=== PATIENT | male | born 1965 | race American Indian/Alaskan Native ===

== ENCOUNTER 2017-02-14 04:12 | Emergency (ER) | payer SELFPAY ==
[2017-02-14 04:16] VITALS: BP 144/98
[2017-02-14 05:15] LABS: Basophils % (Auto) 0.8 % (0.0-1.8); Eosinophils % (Auto) 2.2 % (0.0-4.3); Hematocrit 42.3 % (35.5-45.6); Hemoglobin 13.8 gm/dl (11.8-15.2); Mean Corpuscular HGB Conc 33 % (32-34); Mean Corpuscular Hemoglobin 28 pg (28-32); Mean Corpuscular Volume 85 fl (84-94); Platelet Count 217 K/mm3 (140-440); Red Blood Count 4.97 M/mm3 (3.65-5.03); Red Cell Distribution Width 14.8 % (13.2-15.2); White Blood Count 7.6 K/mm3 (4.5-11.0)
[2017-02-14 05:29] LABS: Anion Gap 16 mmol/L; BUN/Creatinine Ratio 21.66; Blood Urea Nitrogen 13 mg/dL (9-20); Calcium 8.6 mg/dL (8.4-10.2); Carbon Dioxide 25 mmol/L (22-30); Glucose 128 mg/dL (75-100); Potassium 3.8 mmol/L (3.6-5.0); Sodium 142 mmol/L (137-145)
--- NOTE | 2017-02-19 09:40 | ED Elopement Review ---
ED Pt Elopement review - Results review Lab results: Laboratory Tests 02/14/17 02/14/17 04:44 04:44 WBC 7.6 RBC 4.97 Hgb 13.8 Hct 42.3 MCV 85 MCH 28 MCHC 33 RDW 14.8 Plt Count 217 Lymph % (Auto) 35.6 H [place] % (Auto) 9.3 H Eos % (Auto) 2.2 Baso % (Auto) 0.8 Lymph # 2.7 [place] # 0.7 Eos # 0.2 Baso # 0.1 Seg Neutrophils % 52.1 Seg Neutrophils # 4.0 Sodium 142 Potassium 3.8 Chloride 105.0 Carbon Dioxide 25 Anion Gap 16 BUN 13 Creatinine 0.6 L Estimated GFR > 60 BUN/Creatinine Ratio 21.66 Glucose 128 H Calcium 8.6 Troponin T < 0.010 - Call Back decision Pt Call Back Decision: No action required
== END 2017-02-14 08:50 | disposition left against medical advice (07) ==
LOC: ED 04:12
DX: R07.89 Other chest pain (principal); F17.200 Nicotine dependence, unspecified, uncomplicated
CPT/HCPCS: 36415; 80048; 84484; 85025; 93005; 93010

== ENCOUNTER 2018-02-07 11:29 | Emergency (ER) | payer SELFPAY ==
[2018-02-07] MEDS ORDERED: ASPIRIN PO ONE (11:39)
[2018-02-07 12:05] LABS: Basophils # (Auto) 0.1 K/mm3 (0.0-0.1); Basophils % (Auto) 0.9 % (0.0-1.8); Eosinophils # (Auto) 0.2 K/mm3 (0.0-0.4); Eosinophils % (Auto) 3.5 % (0.0-4.3); Hematocrit 40.8 % (35.5-45.6); Hemoglobin 13.3 gm/dl (11.8-15.2); Lymphocytes # (Auto) 2.1 K/mm3 (1.2-5.4); Lymphocytes % (Auto) 34.7 % (13.4-35.0); Mean Corpuscular HGB Conc 33 % (32-34); Mean Corpuscular Hemoglobin 28 pg (28-32); Mean Corpuscular Volume 86 fl (84-94); Monocytes # (Auto) 0.5 K/mm3 (0.0-0.8); Monocytes % (Auto) 7.4 % (0.0-7.3); Platelet Count 235 K/mm3 (140-440); Red Blood Count 4.75 M/mm3 (3.65-5.03); Red Cell Distribution Width 14.3 % (13.2-15.2)
[2018-02-07 12:18] LABS: INR 0.83 (0.87-1.13)
[2018-02-07 12:19] LABS: Partial Thromboplastin Time 29.6 Sec. (24.2-36.6)
--- NOTE | 2018-02-07 12:20 | XRay Report ---
PORTABLE CHEST: Hypertension. An AP portable view of the chest demonstrates a normal cardiac contour considering the limits of this technique. The lungs are clear with no evidence of infiltrate, fluid or failure. IMPRESSION: Normal portable chest.
[2018-02-07 12:21] LABS: BUN/Creatinine Ratio 22; Blood Urea Nitrogen 13 mg/dL (9-20); Calcium 8.2 mg/dL (8.4-10.2); Hemolysis Index 4
[2018-02-07 12:24] LABS: Alanine Aminotransferase 12 units/L (7-56); Albumin 3.8 g/dL (3.9-5)
[2018-02-07 12:25] LABS: Bilirubin,Direct < 0.2 mg/dL (0-0.2)
--- NOTE | 2018-02-07 12:42 | Emergency Department Report ---
ED Chest Pain HPI - General Chief Complaint: Chest Pain Stated Complaint: CHEST PAIN Time Seen by Provider: 02/07/18 11:46 Source: patient, EMS Mode of arrival: Stretcher Limitations: No Limitations - History of Present Illness Initial Comments: This is a patient that is 53 years old with multiple risk factors for coronary artery disease as well as a positive stress thallium followed by a cardiac catheterization demonstrating multivessel disease and an RCA occlusion during his last hospitalization little more than a week ago. He tells me that bypass surgery was discussed. He states that he has appointment to see Dr. Millan the February 14. He is reported to still be smoking as of his last admission. He states he has a history of stroke that was treated at another hospital 2 years ago. He states he has had intermittent left-sided weakness since then. He states that this left-sided weakness was present again this morning albeit mild. He presents to the emergency department with 4 left-sided chest pain towards the lateral chest which she describes as intermittent and sharp. It is associated with a "fluttering". Patient did not check his pulse. He states he is breathing fine then but had some shortness of breath before he called the ambulance. He does not complain of any nausea or vomiting. He does not complain of any leg pain and/or swelling. Chest pain is largely resolved by the time of my encounter with the patient. In addition I did not find any acute or readily demonstrable left-sided weakness. MD Complaint: chest pain -: Gradual, minutes(s), hour(s) Onset: during rest Pain Location: left chest Pain Radiation: none Severity scale (0 -10): 0 Quality: sharp Consistency: intermittent Improves With: nothing Worsens With: nothing Context: other (known multivessel disease) re: dyspnea. denies: nausea, vomting, diaphoresis Other Symptoms: denies: cough, fever, syncope Treatments Prior to Arrival: none - Related Data Previous Rx's Medication Instructions Recorded Last Taken Type Famotidine [Pepcid] 20 mg PO BID #30 tablet 01/30/18 Unknown Rx Metformin HCl 500 mg PO DAILY #30 tablet 01/30/18 Unknown Rx Aspirin EC [Aspirin Enteric Coated 325 mg PO QDAY #30 tablet 01/31/18 Unknown Rx TAB] AtorvaSTATin [Lipitor] 40 mg PO QHS #30 tab 01/31/18 Unknown Rx Metoprolol [Lopressor TAB] 12.5 mg PO BID #60 tablet 01/31/18 Unknown Rx Allergies Allergy/AdvReac Type Severity Reaction Status Date / Time No Known Allergies Allergy Verified 12/04/14 11:45 Heart Score - HEART Score History: Slightly suspicious EKG: Normal (essentially normal EKG) Age: 45-65 Risk factors: > 3 risk factors or hx of atherosclerotic disease Troponin: < normal limit HEART Score: 3 - Critical Actions Critical Actions: 0-3 pts:0.9-1.7%risk of adverse cardiac event.Candidate for discharge ED Review of Systems ROS: Stated complaint: CHEST PAIN Other details as noted in HPI Constitutional: denies: chills, fever Eyes: denies: eye pain, eye discharge, vision change ENT: denies: ear pain, throat pain Respiratory: shortness of breath. denies: cough, wheezing Cardiovascular: chest pain. denies: palpitations Endocrine: no symptoms reported Gastrointestinal: denies: abdominal pain, nausea, diarrhea Genitourinary: denies: urgency, dysuria Musculoskeletal: denies: back pain, joint swelling, arthralgia Skin: denies: rash, lesions Neurological: denies: headache, weakness, paresthesias Psychiatric: denies: anxiety, depression Hematological/Lymphatic: denies: easy bleeding, easy bruising ED Past Medical Hx - Past Medical History Hx Hypertension: Yes Hx Diabetes: Yes Hx GERD: Yes - Social History Smoking Status: Current Every Day Smoker - Medications Home Medications: Home Medications Medication Instructions Recorded Confirmed Last Taken Type Famotidine [Pepcid] 20 mg PO BID #30 tablet 01/30/18 Unknown Rx Metformin HCl 500 mg PO DAILY #30 tablet 01/30/18 Unknown Rx Aspirin EC [Aspirin Enteric Coated 325 mg PO QDAY #30 tablet 01/31/18 Unknown Rx TAB] AtorvaSTATin [Lipitor] 40 mg PO QHS #30 tab 01/31/18 Unknown Rx Metoprolol [Lopressor TAB] 12.5 mg PO BID #60 tablet 01/31/18 Unknown Rx ED Physical Exam - General Limitations: No Limitations General appearance: alert, in no apparent distress - Head Head exam: Present: atraumatic, normocephalic - Eye Eye exam: Present: normal appearance. Absent: scleral icterus - ENT ENT exam: Present: mucous membranes moist - Neck Neck exam: Present: normal inspection. Absent: tenderness, meningismus - Respiratory Respiratory exam: Present: normal lung sounds bilaterally. Absent: respiratory distress - Cardiovascular Cardiovascular Exam: Present: regular rate, normal rhythm. Absent: systolic murmur, diastolic murmur, rubs, gallop - GI/Abdominal GI/Abdominal exam: Present: soft, normal bowel sounds. Absent: distended, tenderness, guarding, rebound, rigid - Rectal Rectal exam: Present: deferred - Extremities Exam Extremities exam: Present: normal inspection - Back Exam Back exam: Present: normal inspection - Neurological Exam Neurological exam: Present: alert, oriented X3, CN II-XII intact. Absent: motor sensory deficit - Psychiatric Psychiatric exam: Present: normal affect, normal mood - Skin Skin exam: Present: warm, dry, intact, normal color. Absent: rash ED Course Vital Signs 02/07/18 02/07/18 02/07/18 11:32 11:36 11:37 Temperature 97.7 F Pulse Rate 78 74 Respiratory 16 13 13 Rate Blood Pressure 132/83 Blood Pressure 124/82 [Left] O2 Sat by Pulse 100 100 100 Oximetry - Reevaluation(s) Reevaluation #1: Patient with multivessel disease and atypical history of chest pain. He also refers intermittent left-sided weakness since his stroke 2 years ago. He stated that he woke up with such weakness this morning. However his NIH stroke score is 0. This new stroke is not suspected. A CT of his head has nonetheless been ordered. Patient has been referred to Dr. Gamboa [facility] service for further care and evaluation. 02/07/18 12:42 DIOGENES score - Diogenes Score Age > 65: (0) No Aspirin use within the Past 7 Days: (0) No 3 or more CAD Risk Factors: (1) Yes 2 or more Angina events in past 24 hrs: (1) Yes Known CAD with more than 50% Stenosis: (0) No Elevated Cardiac Markers: (0) No ST Deviation Greater than 0.5mm: (0) No DIOGENES Score: 2 ED Medical Decision Making - Lab Data Result diagrams: 02/07/18 11:50 02/07/18 11:50 Laboratory Results - last 24 hr 02/07/18 02/07/18 02/07/18 11:50 11:50 11:56 WBC 6.2 RBC 4.75 Hgb 13.3 Hct 40.8 MCV 86 MCH 28 MCHC 33 RDW 14.3 Plt Count 235 Lymph % (Auto) 34.7 [place] % (Auto) 7.4 H Eos % (Auto) 3.5 Baso % (Auto) 0.9 Lymph # 2.1 [place] # 0.5 Eos # 0.2 Baso # 0.1 Seg Neutrophils % 53.5 Seg Neutrophils # 3.3 PT 11.8 L INR 0.83 L APTT 29.6 Sodium 139 Potassium 4.1 Chloride 103.8 Carbon Dioxide 27 Anion Gap 12 BUN 13 Creatinine 0.6 L Estimated GFR > 60 BUN/Creatinine Ratio 22 Glucose 207 H Calcium 8.2 L Total Bilirubin Direct Bilirubin AST ALT Alkaline Phosphatase Total Creatine Kinase CK-MB (CK-2) CK-MB (CK-2) Rel Index Troponin T < 0.010 NT-Pro-B Natriuret Pep Total Protein Albumin Albumin/Globulin Ratio 02/07/18 11:56 WBC RBC Hgb Hct MCV MCH MCHC RDW Plt Count Lymph % (Auto) [place] % (Auto) Eos % (Auto) Baso % (Auto) Lymph # [place] # Eos # Baso # Seg Neutrophils % Seg Neutrophils # PT INR APTT Sodium Potassium Chloride Carbon Dioxide Anion Gap BUN Creatinine Estimated GFR BUN/Creatinine Ratio Glucose Calcium Total Bilirubin 0.30 Direct Bilirubin < 0.2 AST 13 ALT 12 Alkaline Phosphatase 102 Total Creatine Kinase 87 CK-MB (CK-2) 2.0 CK-MB (CK-2) Rel Index 2.2 Troponin T NT-Pro-B Natriuret Pep 69.38 Total Protein 5.8 L Albumin 3.8 L Albumin/Globulin Ratio 1.9 - EKG Data -: EKG Interpreted by Nh EKG shows normal: sinus rhythm, axis, intervals, QRS complexes, ST-T waves Rate: normal - EKG Data Interpretation: normal EKG - Radiology Data Radiology results: report reviewed (normal per radiologist) Critical care attestation.: If time is entered above; I have spent that time in minutes in the direct care of this critically ill patient, excluding procedure time. ED Disposition Clinical Impression: Focal neurological signs Chest pain Qualifiers: Chest pain type: unspecified Qualified Code(s): R07.9 - Chest pain, unspecified Type 2 diabetes mellitus Qualifiers: Diabetes mellitus terminal worker insulin use: without retirement use Diabetes mellitus complication status: without complication Qualified Code(s): E11.9 - Type 2 diabetes mellitus without complications Disposition: OP ADMIT IP TO THIS HOSP Is pt being admited?: Yes Does the pt Need Aspirin: Yes Condition: Stable Instructions: Chest Pain (ED), Diabetes Mellitus Type 2 in Adults (ED) Referrals: PRIMARY CARE, [Primary Care Provider] - 3-5 Days Time of Disposition: 12:45
--- NOTE | 2018-02-07 13:27 | Cat Scan Report ---
CT head without contrast: Subjective weakness. Axial images demonstrate an unremarkable intracranial scan. No evidence of hemorrhage or mass effect. Normal ventricles. No extracerebral collection. The visualized bony structures are normal. There is mucoperiosteal thickening in the superior lateral aspect of the partially imaged left maxillary sinus. Minimal patchy changes are identified in a couple of the ethmoid sinuses bilaterally as well as in the base of the left frontal sinus. No prior exams for comparison. Impressions: 1. Normal intracranial scan. 2. Left sinusitis of indeterminate age.
[2018-02-07 13:29] LABS: Bilirubin,Urine NEG (Negative); Blood,Urine NEG (Negative); Color,Urine Yellow (Yellow); Mucus,Urine FEW /HPF; Protein,Urine <15 mg/dL mg/dL (Negative); RBC,Urine < 1.0 /HPF (0.0-6.0); WBC,Urine < 1.0 /HPF (0.0-6.0)
[2018-02-07 13:48] LABS: Amphetamine Screen,Urine PRESUMPTIVE NEGATIVE; Benzodiazepines Screen,Urine PRESUMPTIVE NEGATIVE; Cannabinoid Screen,Urine PRESUMPTIVE NEGATIVE; Methadone Screen,Urine PRESUMPTIVE NEGATIVE; Opiate Screen,Urine PRESUMPTIVE NEGATIVE
[2018-02-07 14:00] LABS: Cocaine Screen,Urine PRESUMPTIVE POSITIVE
--- NOTE | 2018-02-07 15:25 | History and Physical Report ---
History of Present Illness Chief complaint: My chest was hurting History of present illness: 53 YO Male with Medication Noncompliance, HTN, CAD, DM, Nicotine Dependence, GERD presents to ED for evaluation. Pt seen and evaluated in ED and found to have Atypical Chest Pain. Upon further interview, patient denies chest pain, and the patient states that he ran out of medication and needs refills. Pt states that he cannot afford his medication, as well as physician office visits. Pt treated with supportive care. Pt underwent serial cardiac enzymes, ekg, and telemetry monitoring which were not indicative of acute ischemia. D dimer was normal. Pt medically optimized and back to usual state of health. Pt discharged home and instructed to f/u Cardiology as instructed and to f/u pcp 1wk. Past History Past Medical History: CAD, GERD, hypertension Past Surgical History: No surgical history (reviewed) Social history: single, smoking Family history: hypertension Medications and Allergies Allergies Allergy/AdvReac Type Severity Reaction Status Date / Time No Known Allergies Allergy Verified 12/04/14 11:45 Home Medications Medication Instructions Recorded Confirmed Last Taken Type Aspirin EC [Aspirin Enteric Coated 325 mg PO QDAY #30 tablet 02/07/18 Unknown Rx TAB] AtorvaSTATin [Lipitor] 40 mg PO QHS #30 tab 02/07/18 Unknown Rx Famotidine [Pepcid] 20 mg PO BID #30 tablet 02/07/18 Unknown Rx Metformin HCl 500 mg PO DAILY #30 tablet 02/07/18 Unknown Rx Metoprolol [Lopressor TAB] 12.5 mg PO BID #60 tablet 02/07/18 Unknown Rx Review of Systems Constitutional: no weight loss, no weight gain, no fever, no chills Ears, nose, mouth and throat: no ear pain, no ear discharge, no tinnitis, no decreased hearing Cardiovascular: no chest pain, no orthopnea, no palpitations, no rapid/ irregular heart beat, no edema Respiratory: no cough, no cough with sputum, no excessive sputum, no shortness of breath Gastrointestinal: no abdominal pain, no nausea, no vomiting, no diarrhea, no constipation Genitourinary Male: no dysuria, no hematuria, no flank pain, no discharge, no urinary frequency, no urinary hesitancy, no nocturia Rectal: no pain, no incontinence, no bleeding Musculoskeletal: no neck stiffness, no neck pain, no shooting arm pain, no arm numbness/tingling, no low back pain, no shooting leg pain, no leg numbness/ tingling Integumentary: no rash, no pruritis, no redness, no sores, no wounds, no jaundice Neurological: no head injury, no transient paralysis, no paralysis, no weakness , no parathesias, no numbness Psychiatric: no anxiety, no memory loss, no change in sleep habits, no sleep disturbances, no insomnia, no hypersomnia, no change in appetite, no change in libido Endocrine: no cold intolerance, no heat intolerance, no polyphagia, no excessive thirst, no polydipsia, no polyuria, no excessive sweating Hematologic/Lymphatic: no easy bruising, no easy bleeding, no lymphadenopathy, no lymphedema Allergic/Immunologic: no urticaria, no allergic rhinitis, no wheezing, no persistent infections, no anaphylaxis, no angioedema Exam - Constitutional Vitals: Temp Pulse Resp BP Pulse Ox 97.7 F 74 13 124/82 100 02/07/18 11:36 02/07/18 11:36 02/07/18 11:37 02/07/18 11:36 02/07/18 11:37 General appearance: Present: no acute distress, well-nourished - EENT Eyes: Present: PERRL ENT: hearing intact, clear oral mucosa - Neck Neck: Present: supple, normal ROM - Respiratory Respiratory effort: normal Respiratory: bilateral: CTA - Cardiovascular Heart Sounds: Present: S1 & S2. Absent: rub, click - Extremities Extremities: pulses symmetrical, No edema Peripheral Pulses: within normal limits - Abdominal General gastrointestinal: Present: soft, non-tender, non-distended, normal bowel sounds Male genitourinary: Present: normal - Integumentary Integumentary: Present: clear, warm, dry - Musculoskeletal Musculoskeletal: gait normal, strength equal bilaterally - Psychiatric Psychiatric: appropriate mood/affect, intact judgment & insight - Neurologic Neurologic: CNII-XII intact, moves all extremities Results - Labs CBC & Chem 7: 02/07/18 11:50 02/07/18 11:50 Labs: Abnormal lab results 02/07/18 02/07/18 02/07/18 Range/Units 11:50 11:50 11:56 [place] % (Auto) 7.4 H (0.0-7.3) % PT 11.8 L (12.2-14.9) Sec. INR 0.83 L (0.87-1.13) Creatinine 0.6 L (0.8-1.5) mg/dL Glucose 207 H (75-100) mg/dL Calcium 8.2 L (8.4-10.2) mg/dL Total Protein (6.3-8.2) g/dL Albumin (3.9-5) g/dL 02/07/18 Range/Units 11:56 [place] % (Auto) (0.0-7.3) % PT (12.2-14.9) Sec. INR (0.87-1.13) Creatinine (0.8-1.5) mg/dL Glucose (75-100) mg/dL Calcium (8.4-10.2) mg/dL Total Protein 5.8 L (6.3-8.2) g/dL Albumin 3.8 L (3.9-5) g/dL Assessment and Plan - Patient Problems (1) Atypical chest pain Current Visit: Yes Status: Acute Plan to address problem: Serial cardiac enzymes, ekg, telemetry normal. D dimer normal. Pt denies chest pain at time of exam. Pt presents to ED for medication refill. (2) Nicotine dependence Current Visit: Yes Status: Acute Qualifiers: Nicotine product type: cigarettes Plan to address problem: Pt counseled regarding cessation, Pt declined to pick quit date (3) Noncompliance Current Visit: No Status: Acute Plan to address problem: Pt counseled,
[2018-02-07] MEDS ORDERED: NACL 0.9% 1000 ML 0 ML ONE (15:43)
[2018-02-07] MEDS ORDERED: ASPIRIN ONE (18:12)
[2018-02-07 18:29] VITALS: BP 133/76
== END 2018-02-07 21:32 | disposition admitted as inpatient to this hospital (09) ==
LOC: ED 11:29
DX: R07.9 Chest pain, unspecified (principal); R29.818 Other symptoms and signs involving the nervous system; E11.9 Type 2 diabetes mellitus without complications; I10 Essential (primary) hypertension; K21.9 Gastro-esophageal reflux disease without esophagitis; F17.200 Nicotine dependence, unspecified, uncomplicated; Z79.84 Long term (current) use of oral hypoglycemic drugs; Z79.899 Other long term (current) drug therapy
CPT/HCPCS: 36415; 70450; 71045; 80048; 80074; 80307; 81001; 82550; 82553; 83880; 84484; 85025; 85379; 85610; 85730; 93005; 93010; J7030

== ENCOUNTER 2018-02-07 22:02 | Emergency (ER) | payer SELFPAY ==
[2018-02-07 22:30] LABS: Basophils % (Auto) 0.6 % (0.0-1.8); Eosinophils # (Auto) 0.3 K/mm3 (0.0-0.4); Eosinophils % (Auto) 3.6 % (0.0-4.3); Hematocrit 41.3 % (35.5-45.6); Hemoglobin 13.5 gm/dl (11.8-15.2); Lymphocytes # (Auto) 3.5 K/mm3 (1.2-5.4); Lymphocytes % (Auto) 47.2 % (13.4-35.0); Mean Corpuscular HGB Conc 33 % (32-34); Mean Corpuscular Hemoglobin 28 pg (28-32); Mean Corpuscular Volume 86 fl (84-94); Monocytes # (Auto) 0.8 K/mm3 (0.0-0.8); Monocytes % (Auto) 10.8 % (0.0-7.3); Platelet Count 236 K/mm3 (140-440); Red Blood Count 4.83 M/mm3 (3.65-5.03); Red Cell Distribution Width 14.4 % (13.2-15.2)
[2018-02-07 22:44] LABS: BUN/Creatinine Ratio 20; Blood Urea Nitrogen 12 mg/dL (9-20); Calcium 8.4 mg/dL (8.4-10.2); Hemolysis Index 9
--- NOTE | 2018-02-08 02:52 | Emergency Department Report ---
ED General Adult HPI - General Chief complaint: Dyspnea/Respdistress Stated complaint: VINCENT Time Seen by Provider: 02/08/18 02:12 Source: patient, family Mode of arrival: Stretcher Limitations: No Limitations - History of Present Illness Initial comments: Mr. Villegas is a 53-year-old male who presents after fall in the ED. He was evaluated by hospitalist colleague Dr. Gamboa for possible admission. He has had extensive evaluation for coronary disease last week. Therefore he was discharged after hospitalist consultation. I reviewed the medical record. Upon discharge from the ED, he fell to the floor. He did not have any associated chest pain or syncope. He did state that he has had 2 weeks of left arm and leg numbness weakness. He has a history of previous CVA with left hip area since. Significant other is at the bedside. She is concerned for recurrent syncope. - Related Data Previous Rx's Medication Instructions Recorded Last Taken Type Aspirin EC [Aspirin Enteric Coated 325 mg PO QDAY #30 tablet 02/07/18 Unknown Rx TAB] AtorvaSTATin [Lipitor] 40 mg PO QHS #30 tab 02/07/18 Unknown Rx Famotidine [Pepcid] 20 mg PO BID #30 tablet 02/07/18 Unknown Rx Metformin HCl 500 mg PO DAILY #30 tablet 02/07/18 Unknown Rx Metoprolol [Lopressor TAB] 12.5 mg PO BID #60 tablet 02/07/18 Unknown Rx Allergies Allergy/AdvReac Type Severity Reaction Status Date / Time No Known Allergies Allergy Verified 12/04/14 11:45 ED Review of Systems ROS: Stated complaint: VINCENT Other details as noted in HPI Comment: All other systems reviewed and negative Constitutional: denies: fever, malaise Respiratory: denies: cough Cardiovascular: denies: chest pain ED Past Medical Hx - Past Medical History Previous Medical History?: Yes Hx Hypertension: Yes Hx Diabetes: Yes Hx GERD: Yes - Surgical History Past Surgical History?: Yes - Social History Smoking Status: Unknown if ever smoked Substance Use Type: None - Medications Home Medications: Home Medications Medication Instructions Recorded Confirmed Last Taken Type Aspirin EC [Aspirin Enteric Coated 325 mg PO QDAY #30 tablet 02/07/18 02/07/18 Unknown Rx TAB] AtorvaSTATin [Lipitor] 40 mg PO QHS #30 tab 02/07/18 02/07/18 Unknown Rx Famotidine [Pepcid] 20 mg PO BID #30 tablet 02/07/18 02/07/18 Unknown Rx Metformin HCl 500 mg PO DAILY #30 tablet 02/07/18 02/07/18 Unknown Rx Metoprolol [Lopressor TAB] 12.5 mg PO BID #60 tablet 02/07/18 02/07/18 Unknown Rx ED Physical Exam - General Limitations: No Limitations General appearance: alert, in no apparent distress - Head Head exam: Present: atraumatic, normocephalic - Eye Eye exam: Present: normal appearance - ENT ENT exam: Present: mucous membranes moist - Neck Neck exam: Present: normal inspection - Respiratory Respiratory exam: Present: normal lung sounds bilaterally. Absent: respiratory distress, wheezes, rales, rhonchi - Cardiovascular Cardiovascular Exam: Present: regular rate, normal rhythm. Absent: systolic murmur, diastolic murmur, rubs, gallop - GI/Abdominal GI/Abdominal exam: Present: soft, normal bowel sounds. Absent: distended, tenderness, guarding, rebound - Rectal Rectal exam: Present: deferred - Extremities Exam Extremities exam: Present: normal inspection - Back Exam Back exam: Present: normal inspection - Neurological Exam Neurological exam: Present: alert, oriented X3, CN II-XII intact, normal gait. Absent: motor sensory deficit - Psychiatric Psychiatric exam: Present: normal affect, normal mood - Skin Skin exam: Present: warm, dry, intact, normal color. Absent: rash ED Course Vital Signs 02/07/18 02/07/18 02/07/18 22:00 22:15 22:30 Pulse Rate 74 81 72 Respiratory 15 14 14 Rate Blood Pressure 144/82 143/74 O2 Sat by Pulse 99 98 94 Oximetry 02/07/18 02/07/18 02/07/18 22:45 22:49 23:00 Pulse Rate 72 72 70 Respiratory 13 22 25 H Rate Blood Pressure 138/76 138/76 136/80 O2 Sat by Pulse 95 99 96 Oximetry 02/07/18 02/07/18 02/07/18 23:15 23:31 23:45 Pulse Rate 71 72 72 Respiratory 16 17 15 Rate Blood Pressure 150/72 128/64 128/73 O2 Sat by Pulse 96 95 96 Oximetry 02/08/18 02/08/18 02/08/18 00:00 00:15 00:30 Pulse Rate 68 65 67 Respiratory 15 12 8 L Rate Blood Pressure 132/74 140/80 133/84 O2 Sat by Pulse 95 94 95 Oximetry 02/08/18 02/08/18 02/08/18 00:45 01:00 01:15 Pulse Rate 74 62 65 Respiratory 21 19 19 Rate Blood Pressure 123/87 121/71 115/77 O2 Sat by Pulse 96 97 96 Oximetry 02/08/18 02/08/18 01:30 01:45 Pulse Rate 66 63 Respiratory 20 19 Rate Blood Pressure 119/74 134/73 O2 Sat by Pulse 96 99 Oximetry ED Medical Decision Making - Lab Data Result diagrams: 02/07/18 22:14 02/07/18 22:14 Laboratory Results - last 24 hr 02/07/18 02/07/18 22:14 22:14 WBC 7.3 RBC 4.83 Hgb 13.5 Hct 41.3 MCV 86 MCH 28 MCHC 33 RDW 14.4 Plt Count 236 Lymph % (Auto) 47.2 H [place] % (Auto) 10.8 H Eos % (Auto) 3.6 Baso % (Auto) 0.6 Lymph # 3.5 [place] # 0.8 Eos # 0.3 Baso # 0.0 Seg Neutrophils % 37.8 L Seg Neutrophils # 2.8 Sodium 140 Potassium 3.9 Chloride 103.9 Carbon Dioxide 26 Anion Gap 14 BUN 12 Creatinine 0.6 L Estimated GFR > 60 BUN/Creatinine Ratio 20 Glucose 199 H Calcium 8.4 - EKG Data 02/08/18 02:53 NSR nl rate nl axis nl intervals no ST-T signs of ischemia no ST elevation rate 75 bpm - Medical Decision Making Mr. Villegas presents with left sided numbness and weakness for 2 weeks. He is not currently concerned for chest pain. I feel his current numbness and weakness is residual weakness from previous CVA. He is stable for home. He has normal EKG presently. Significant other will arrange f/u at [facility]. Critical care attestation.: If time is entered above; I have spent that time in minutes in the direct care of this critically ill patient, excluding procedure time. ED Disposition Clinical Impression: Fall, History of CVA (cerebrovascular accident) Disposition: DC-01 TO HOME OR SELFCARE Is pt being admited?: No Does the pt Need Aspirin: No Condition: Stable Instructions: Weakness (ED), Syncope (ED) Referrals: [facility] [Outside] - 3-5 Days Time of Disposition: 02:56
[2018-02-08 03:02] VITALS: BP 126/78
== END 2018-02-08 03:08 | disposition home or self-care (01) ==
LOC: ED 22:02
DX: R06.00 Dyspnea, unspecified (principal); I10 Essential (primary) hypertension; E11.9 Type 2 diabetes mellitus without complications; K21.9 Gastro-esophageal reflux disease without esophagitis; Z86.73 Personal history of transient ischemic attack (TIA), and cerebral infarction without residual deficits
CPT/HCPCS: 36415; 80048; 85025; 93005; 93010; 99283

== ENCOUNTER 2018-02-22 00:13 | Emergency (ER) | payer OTHER ==
[2018-02-22 01:11] LABS: Basophils # (Auto) 0.1 K/mm3 (0.0-0.1); Basophils % (Auto) 0.8 % (0.0-1.8); Eosinophils # (Auto) 0.2 K/mm3 (0.0-0.4); Eosinophils % (Auto) 2.9 % (0.0-4.3); Hematocrit 43.8 % (35.5-45.6); Hemoglobin 14.4 gm/dl (11.8-15.2); Lymphocytes # (Auto) 3.7 K/mm3 (1.2-5.4); Lymphocytes % (Auto) 44.6 % (13.4-35.0); Mean Corpuscular HGB Conc 33 % (32-34); Mean Corpuscular Hemoglobin 28 pg (28-32); Mean Corpuscular Volume 87 fl (84-94); Monocytes # (Auto) 0.7 K/mm3 (0.0-0.8); Monocytes % (Auto) 8.5 % (0.0-7.3); Platelet Count 225 K/mm3 (140-440); Red Blood Count 5.06 M/mm3 (3.65-5.03); Red Cell Distribution Width 14.4 % (13.2-15.2)
[2018-02-22 01:30] LABS: Alanine Aminotransferase 11 units/L (7-56); Albumin 3.9 g/dL (3.9-5); BUN/Creatinine Ratio 17; Blood Urea Nitrogen 12 mg/dL (9-20); Hemolysis Index 8
--- NOTE | 2018-02-22 06:46 | Emergency Department Report ---
HPI - General Chief Complaint: Extremity Problem,Nontraumatic Time Seen by Provider: 02/22/18 06:14 - HPI HPI: 53-year-old Afro-Syrian male presents to the emergency department by EMS from home with complaint of bilateral leg pain, 8 out of 10 in intensity, but has been going on for about 24 hours. The patient reiterates that he feels like " my veins are popping out of my legs." He has a past medical history of diabetes , GERD, hypertension. He denies any recent travel, prolonged immobility, or any sick contacts at home. He has not taken anything for her symptoms prior to presentation. He denies having a primary care physician. ED Past Medical Hx - Past Medical History Hx Hypertension: Yes Hx Diabetes: Yes Hx GERD: Yes - Social History Smoking Status: Current Every Day Smoker Substance Use Type: None - Medications Home Medications: Home Medications Medication Instructions Recorded Confirmed Last Taken Type Aspirin EC [Aspirin Enteric Coated 325 mg PO QDAY #30 tablet 02/07/18 02/07/18 Unknown Rx TAB] AtorvaSTATin [Lipitor] 40 mg PO QHS #30 tab 02/07/18 02/07/18 Unknown Rx Famotidine [Pepcid] 20 mg PO BID #30 tablet 02/07/18 02/07/18 Unknown Rx Metformin HCl 500 mg PO DAILY #30 tablet 02/07/18 02/07/18 Unknown Rx Metoprolol [Lopressor TAB] 12.5 mg PO BID #60 tablet 02/07/18 02/07/18 Unknown Rx ED Review of Systems ROS: Stated complaint: LEG PAIN Other details as noted in HPI Comment: All other systems reviewed and negative Constitutional: denies: chills, fever Eyes: denies: eye pain, eye discharge, vision change ENT: denies: ear pain, throat pain Respiratory: denies: cough, shortness of breath, wheezing Cardiovascular: denies: chest pain, palpitations Gastrointestinal: denies: abdominal pain, nausea, diarrhea Genitourinary: denies: urgency, dysuria Musculoskeletal: myalgia. denies: back pain Skin: denies: rash, lesions Neurological: denies: headache, weakness, paresthesias Physical Exam - Physical Exam Vital Signs: Vital Signs 02/22/18 00:16 Temperature 98.3 F Pulse Rate 96 H Respiratory 16 Rate Blood Pressure 137/86 O2 Sat by Pulse 98 Oximetry ED Course Vital Signs 02/22/18 00:16 Temperature 98.3 F Pulse Rate 96 H Respiratory 16 Rate Blood Pressure 137/86 O2 Sat by Pulse 98 Oximetry ED Medical Decision Making - Lab Data Result diagrams: 02/22/18 00:48 02/22/18 00:47 Critical care attestation.: If time is entered above; I have spent that time in minutes in the direct care of this critically ill patient, excluding procedure time. ED Disposition Clinical Impression: Bilateral leg pain Disposition: - TO HOME OR SELFCARE Is pt being admited?: No Condition: Stable Instructions: Arthralgia (ED) Additional Instructions: Please follow up with a primary care physician in the next few days. Return to the emergency Department with any worsening of your symptoms or any acute distress. Referrals: JEREMIAH FISHER MD [Staff Physician] - 2-3 Days [facility] [Outside] - 2-3 Days Time of Disposition: 10:32
[2018-02-22 12:03] VITALS: BP 114/67
== END 2018-02-22 12:05 | disposition home or self-care (01) ==
LOC: ED 00:13
DX: M79.605 Pain in left leg (principal); M79.604 Pain in right leg; I10 Essential (primary) hypertension; E11.9 Type 2 diabetes mellitus without complications; K21.9 Gastro-esophageal reflux disease without esophagitis; F17.200 Nicotine dependence, unspecified, uncomplicated
CPT/HCPCS: 36415; 80053; 82550; 85025; 93970; 99283

== ENCOUNTER 2018-02-22 12:31 | Emergency (ER) | payer SELFPAY ==
[2018-02-22 12:59] VITALS: BP 127/87
--- NOTE | 2018-02-22 14:34 | Emergency Department Report ---
Chief Complaint: Extremity Problem,Nontraumatic Stated Complaint: LEG NUMBNESS Time Seen by Provider: 02/22/18 14:05 - HPI History of Present Illness: Patient is a 53-year-old -Welsh male who was just discharged from the emergency department several hours ago was checked back in stating that he wants something for pain. Patient is complaining of intermittent left lower extremity numbness and pain. Patient states his veins look too prominent on the side. Patient also has intermittent discomfort in his left upper shoulder areas well. There is been no redness swelling of these extremities. Patient again was seen in the emergency department had a negative CK negative Doppler negative d-dimer and was discharged with outpatient follow-up. - ROS Review of Systems: All other systems are negative and have been reviewed - Exam Vital Signs: Vital Signs 02/22/18 12:56 Temperature 98.4 F Pulse Rate 75 Respiratory 16 Rate Blood Pressure 127/87 O2 Sat by Pulse 97 Oximetry Physical Exam: Brief physical exam the patient's extremities show no acute swelling edema redness induration or fluctuance in any areas. Heart exam shows normal heart tones lungs are clear to auscultations abdomen is soft nontender. MSE screening note: Focused history and physical exam performed. Due to findings the following was ordered: ED Medical Decision Making - Medical Decision Making Patient advised to use [id number] pain meds such as Motrin or Aleve patient be discharged home with follow-up. ED Disposition for MSE Clinical Impression: Radiculopathy Disposition: Z-07 MED SCREENING EXAM-LEFT Is pt being admited?: No Does the pt Need Aspirin: No Condition: Stable Referrals: [facility] [Outside] - 3-5 Days
== END 2018-02-22 14:47 | disposition left against medical advice (07) ==
LOC: ED 12:31
DX: M54.10 Radiculopathy, site unspecified (principal)
CPT/HCPCS: 99282

== ENCOUNTER 2018-02-24 11:32 | Emergency (ER) | payer SELFPAY ==
[2018-02-24] MEDS ORDERED: ASPIRIN PO ONE (11:46)
--- NOTE | 2018-02-24 12:43 | XRay Report ---
Chest 2 views: History: Shortness of breath. Chest pain. Smoker. Findings: Normal cardiomediastinal silhouette. Trachea is midline. No consolidation, pneumothorax or pleural effusion. Impression: No acute cardiopulmonary findings.
[2018-02-24 12:59] LABS: Basophils # (Auto) 0.1 K/mm3 (0.0-0.1); Basophils % (Auto) 0.8 % (0.0-1.8); Eosinophils # (Auto) 0.2 K/mm3 (0.0-0.4); Hematocrit 44.5 % (35.5-45.6); Hemoglobin 14.7 gm/dl (11.8-15.2); Lymphocytes % (Auto) 33.7 % (13.4-35.0); Mean Corpuscular HGB Conc 33 % (32-34); Mean Corpuscular Hemoglobin 28 pg (28-32); Mean Corpuscular Volume 86 fl (84-94); Monocytes # (Auto) 0.5 K/mm3 (0.0-0.8); Monocytes % (Auto) 5.9 % (0.0-7.3); Platelet Count 233 K/mm3 (140-440); Red Cell Distribution Width 14.5 % (13.2-15.2)
[2018-02-24 13:10] LABS: BUN/Creatinine Ratio 16; Blood Urea Nitrogen 11 mg/dL (9-20); Hemolysis Index 11
[2018-02-24] MEDS ORDERED: NITROSTAT SL PRN (15:36)
--- NOTE | 2018-02-24 16:46 | Emergency Department Report ---
ED Chest Pain HPI - General Chief Complaint: Chest Pain Stated Complaint: CHEST PAINS Time Seen by Provider: 02/24/18 15:35 Source: patient Mode of arrival: Ambulatory Limitations: No Limitations - History of Present Illness Initial Comments: 1 day of left sided CP that is intermittent, radiating to his left arm, pleuritic, exertional. His chest feels a lot of pressure. Similar to the pain that he had 2 weeks ago. Smokes 1 PPD. No fam hx of ACS. - Related Data Previous Rx's Medication Instructions Recorded Last Taken Type Aspirin EC [Aspirin Enteric Coated 325 mg PO QDAY #30 tablet 02/24/18 Unknown Rx TAB] AtorvaSTATin [Lipitor] 40 mg PO QHS #30 tab 02/24/18 Unknown Rx Famotidine [Pepcid] 20 mg PO BID #30 tablet 02/24/18 Unknown Rx Metformin HCl 500 mg PO DAILY #30 tablet 02/24/18 Unknown Rx Metoprolol [Lopressor TAB] 12.5 mg PO BID #60 tablet 02/24/18 Unknown Rx Allergies Allergy/AdvReac Type Severity Reaction Status Date / Time No Known Allergies Allergy Verified 02/22/18 00:16 Heart Score - HEART Score History: Moderately suspicious EKG: Normal Age: 45-65 Risk factors: > 3 risk factors or hx of atherosclerotic disease Troponin: < normal limit HEART Score: 4 ED Review of Systems ROS: Stated complaint: CHEST PAINS Other details as noted in HPI Comment: All other systems reviewed and negative Respiratory: shortness of breath Cardiovascular: chest pain ED Past Medical Hx - Past Medical History Hx Hypertension: Yes Hx Diabetes: Yes Hx GERD: Yes - Surgical History Past Surgical History?: No - Social History Smoking Status: Current Every Day Smoker Substance Use Type: None - Medications Home Medications: Home Medications Medication Instructions Recorded Confirmed Last Taken Type Aspirin EC [Aspirin Enteric Coated 325 mg PO QDAY #30 tablet 02/24/18 Unknown Rx TAB] AtorvaSTATin [Lipitor] 40 mg PO QHS #30 tab 02/24/18 Unknown Rx Famotidine [Pepcid] 20 mg PO BID #30 tablet 02/24/18 Unknown Rx Metformin HCl 500 mg PO DAILY #30 tablet 02/24/18 Unknown Rx Metoprolol [Lopressor TAB] 12.5 mg PO BID #60 tablet 02/24/18 Unknown Rx ED Physical Exam - General Limitations: No Limitations General appearance: alert, in no apparent distress - Head Head exam: Present: atraumatic, normocephalic - Eye Eye exam: Present: normal appearance - ENT ENT exam: Present: mucous membranes moist - Neck Neck exam: Present: normal inspection - Respiratory Respiratory exam: Present: normal lung sounds bilaterally. Absent: respiratory distress - Cardiovascular Cardiovascular Exam: Present: regular rate, normal rhythm. Absent: systolic murmur, diastolic murmur, rubs, gallop - GI/Abdominal GI/Abdominal exam: Present: soft, normal bowel sounds. Absent: tenderness - Rectal Rectal exam: Present: deferred - Extremities Exam Extremities exam: Present: normal inspection - Back Exam Back exam: Present: normal inspection - Neurological Exam Neurological exam: Present: alert, oriented X3 - Psychiatric Psychiatric exam: Present: normal affect, normal mood - Skin Skin exam: Present: warm, dry, intact, normal color. Absent: rash ED Course Vital Signs 02/24/18 02/24/18 11:40 15:44 Temperature 98.6 F 98.6 F Pulse Rate 87 69 Respiratory 18 16 Rate Blood Pressure 140/84 Blood Pressure 120/77 [Left] O2 Sat by Pulse 99 100 Oximetry DIOGENES score - Diogenes Score Age > 65: (0) No Aspirin use within the Past 7 Days: (0) No 3 or more CAD Risk Factors: (1) Yes 2 or more Angina events in past 24 hrs: (1) Yes Known CAD with more than 50% Stenosis: (0) No Elevated Cardiac Markers: (0) No ST Deviation Greater than 0.5mm: (0) No DIOGENES Score: 2 ED Medical Decision Making - Lab Data Result diagrams: 02/24/18 12:38 02/24/18 12:38 - EKG Data -: EKG Interpreted by Ri EKG shows normal: sinus rhythm, axis, intervals, QRS complexes, ST-T waves Rate: normal - EKG Data When compared to previous EKG there are: no significant change - Radiology Data Radiology results: report reviewed, image reviewed - Medical Decision Making 53 yo male with pmhx CAD, HTN, HLD that presents to the ER with CP. VSS. PT well appearing. CXR shows no acute process. Heart score 4. LHC in 01/2018 showed 100% RCA occlusion with moderate CAD. trop neg x2. Pt still having CP. Given asa. Pt will be admitted for further ACS work up. EKG is nonischemic. low suspicion for PE. - Differential Diagnosis ACS, ptx, pna, dissection, esophageal rupture, gerd Critical care attestation.: If time is entered above; I have spent that time in minutes in the direct care of this critically ill patient, excluding procedure time. ED Disposition Clinical Impression: Chest pain Disposition: OP ADMIT IP TO THIS HOSP Is pt being admited?: Yes Does the pt Need Aspirin: No Condition: Stable Instructions: Chest Pain (ED) Prescriptions: AtorvaSTATin [Lipitor] 40 mg PO QHS #30 tab Aspirin EC [Aspirin Enteric Coated TAB] 325 mg PO QDAY #30 tablet Famotidine [Pepcid] 20 mg PO BID #30 tablet Metformin HCl 500 mg PO DAILY #30 tablet Metoprolol [Lopressor TAB] 12.5 mg PO BID #60 tablet Referrals: PRIMARY CARE, [Primary Care Provider] - 3-5 Days
--- NOTE | 2018-02-24 17:08 | History and Physical Report ---
History of Present Illness Chief complaint: My chest hurts History of present illness: 53 YO Male with HTN, DM, Nicotine Dependence, GERD, CAD presents to ED for evaluation for Atypical Chest Pain. Pt seen and evaluated and treated with Chest Pain protocol. Serial cardiac enzymes, ekg, and telemetry were unremarkable for evidence of ischemia. Pt medically optimized and back to usual state of health. Pt discharged home and instructed to f/u pcp 1wk, and cardiology 3-5 days. Pt counseled regarding risk factor reduction. Pt acknowledges understanding instructions. Past History Past Medical History: CAD, diabetes, GERD, hypertension Past Surgical History: No surgical history, Other (reviewed) Social history: Family history: diabetes, hypertension Medications and Allergies Allergies Allergy/AdvReac Type Severity Reaction Status Date / Time No Known Allergies Allergy Verified 02/22/18 00:16 Home Medications Medication Instructions Recorded Confirmed Last Taken Type Aspirin EC [Aspirin Enteric Coated 325 mg PO QDAY #30 tablet 02/24/18 Unknown Rx TAB] AtorvaSTATin [Lipitor] 40 mg PO QHS #30 tab 02/24/18 Unknown Rx Famotidine [Pepcid] 20 mg PO BID #30 tablet 02/24/18 Unknown Rx Metformin HCl 500 mg PO DAILY #30 tablet 02/24/18 Unknown Rx Metoprolol [Lopressor TAB] 12.5 mg PO BID #60 tablet 02/24/18 Unknown Rx Active Meds: Active Medications Nitroglycerin (Nitrostat) 0.4 mg SL .Q5MIN PRN PRN Reason: Chest Pain Review of Systems Constitutional: no weight loss, no weight gain, no fever, no chills Ears, nose, mouth and throat: no ear pain, no ear discharge, no tinnitis, no decreased hearing, no nose pain, no nasal congestion, no nasal discharge Cardiovascular: chest pain, no orthopnea, no palpitations, no rapid/irregular heart beat Respiratory: no cough, no cough with sputum, no excessive sputum, no hemoptysis , no shortness of breath Gastrointestinal: no abdominal pain, no nausea, no vomiting, no diarrhea, no constipation Genitourinary Male: no hematuria, no flank pain, no discharge, no urinary frequency, no urinary hesitancy Rectal: no pain, no incontinence, no bleeding Musculoskeletal: no neck stiffness, no neck pain, no shooting arm pain, no arm numbness/tingling, no low back pain, no shooting leg pain Integumentary: no rash, no pruritis, no redness, no sores, no wounds Neurological: no transient paralysis, no paralysis, no weakness, no parathesias , no numbness, no tingling, no seizures Psychiatric: no anxiety, no memory loss, no change in sleep habits, no sleep disturbances, no insomnia, no hypersomnia, no change in appetite, no change in libido Endocrine: no cold intolerance, no heat intolerance, no polyphagia, no excessive thirst, no polydipsia, no polyuria, no nocturia, no excessive sweating Hematologic/Lymphatic: no easy bruising, no easy bleeding, no lymphadenopathy, no lymphedema Allergic/Immunologic: no urticaria, no allergic rhinitis, no wheezing, no persistent infections, no anaphylaxis Exam - Constitutional Vitals: Temp Pulse Resp BP Pulse Ox 98.6 F 69 16 120/77 100 02/24/18 15:44 02/24/18 15:44 02/24/18 15:44 02/24/18 15:44 02/24/18 15:44 General appearance: Present: no acute distress, well-nourished - EENT Eyes: Present: PERRL ENT: hearing intact, clear oral mucosa - Neck Neck: Present: supple, normal ROM - Respiratory Respiratory effort: normal Respiratory: bilateral: CTA - Cardiovascular Heart Sounds: Present: S1 & S2. Absent: rub, click - Extremities Extremities: pulses symmetrical, No edema Peripheral Pulses: within normal limits - Abdominal General gastrointestinal: Present: soft, non-tender, non-distended, normal bowel sounds Male genitourinary: Present: normal - Integumentary Integumentary: Present: clear, warm, dry - Musculoskeletal Musculoskeletal: gait normal, strength equal bilaterally - Psychiatric Psychiatric: appropriate mood/affect, intact judgment & insight - Neurologic Neurologic: CNII-XII intact, moves all extremities Results - Labs CBC & Chem 7: 02/24/18 12:38 02/24/18 12:38 Labs: Abnormal lab results 02/24/18 02/24/18 Range/Units 12:38 12:38 RBC 5.20 H (3.65-5.03) M/mm3 Creatinine 0.7 L (0.8-1.5) mg/dL Glucose 161 H (75-100) mg/dL Assessment and Plan - Patient Problems (1) Atypical chest pain Current Visit: No Status: Acute Plan to address problem: Serial cardiac enzymes, ekg, telemetry. Pt discharged home and instructed to f/ u pcp as well as cardiology as instructed. (2) GERD (gastroesophageal reflux disease) Current Visit: Yes Status: Acute Qualifiers: Esophagitis presence: without esophagitis Qualified Code(s): K21.9 - Gastro -esophageal reflux disease without esophagitis Plan to address problem: PPI therapy (3) Nicotine dependence Current Visit: No Status: Acute Qualifiers: Nicotine product type: cigarettes Plan to address problem: Smoking cessation couseling.
[2018-02-24 20:06] VITALS: BP 120/78
== END 2018-02-24 20:06 | disposition home or self-care (01) ==
LOC: ED 11:32
DX: R07.89 Other chest pain (principal); I10 Essential (primary) hypertension; E11.9 Type 2 diabetes mellitus without complications; K21.9 Gastro-esophageal reflux disease without esophagitis; F17.200 Nicotine dependence, unspecified, uncomplicated
CPT/HCPCS: 36415; 71046; 80048; 84484; 85025; 85379; 93005; 93010

== ENCOUNTER 2018-02-25 08:10 | Emergency (ER) | payer SELFPAY ==
[2018-02-25] MEDS ORDERED: NACL 0.9% 1000 ML 1,000 ML IV ONE (08:19)
[2018-02-25 08:55] LABS: Basophils # (Auto) 0.1 K/mm3 (0.0-0.1); Basophils % (Auto) 0.7 % (0.0-1.8); Eosinophils # (Auto) 0.2 K/mm3 (0.0-0.4); Eosinophils % (Auto) 2.2 % (0.0-4.3); Hematocrit 44.7 % (35.5-45.6); Hemoglobin 14.7 gm/dl (11.8-15.2); Lymphocytes # (Auto) 2.4 K/mm3 (1.2-5.4); Lymphocytes % (Auto) 29.5 % (13.4-35.0); Mean Corpuscular HGB Conc 33 % (32-34); Mean Corpuscular Hemoglobin 28 pg (28-32); Mean Corpuscular Volume 86 fl (84-94); Monocytes # (Auto) 0.7 K/mm3 (0.0-0.8); Monocytes % (Auto) 8.4 % (0.0-7.3); Platelet Count 226 K/mm3 (140-440); Red Blood Count 5.18 M/mm3 (3.65-5.03); Red Cell Distribution Width 14.5 % (13.2-15.2)
[2018-02-25 09:14] LABS: Alanine Aminotransferase 13 units/L (7-56); Albumin 3.9 g/dL (3.9-5); BUN/Creatinine Ratio 17; Blood Urea Nitrogen 10 mg/dL (9-20); Calcium 9.3 mg/dL (8.4-10.2); Hemolysis Index 11
--- NOTE | 2018-02-25 16:26 | Emergency Department Report ---
HPI - General Chief Complaint: Abdominal Pain Time Seen by Provider: 02/25/18 15:56 - HPI HPI: 53-year-old male presents to the emergency department with complaint of lower abdominal cramping pains along with nausea and vomiting 2 with green emesis has been going on since this morning. He denies any fever, diarrhea, current chest pain, shortness of breath. Patient has a past medical history of diabetes, GERD, hypertension. Patient has been to the emergency Department here multiple times in the past few days for previous complaints of leg pain and chest discomfort. He does not appear to have a primary care physician. No recent travel or sick contacts at home. He did not take anything for his symptoms prior to presentation. ED Past Medical Hx - Past Medical History Hx Hypertension: Yes Hx Diabetes: Yes Hx GERD: Yes - Surgical History Past Surgical History?: No - Social History Smoking Status: Current Every Day Smoker Substance Use Type: None - Medications Home Medications: Home Medications Medication Instructions Recorded Confirmed Last Taken Type Aspirin EC [Aspirin Enteric Coated 325 mg PO QDAY #30 tablet 02/24/18 02/25/18 Unknown Rx TAB] AtorvaSTATin [Lipitor] 40 mg PO QHS #30 tab 02/24/18 02/25/18 Unknown Rx Famotidine [Pepcid] 20 mg PO BID #30 tablet 02/24/18 02/25/18 Unknown Rx Metformin HCl 500 mg PO DAILY #30 tablet 02/24/18 02/25/18 Unknown Rx Metoprolol [Lopressor TAB] 12.5 mg PO BID #60 tablet 02/24/18 02/25/18 Unknown Rx Ondansetron [Zofran Odt] 4 mg PO Q8H PRN #10 tab.rapdis 02/25/18 Unknown Rx ED Review of Systems ROS: Stated complaint: ABD PAIN Other details as noted in HPI Comment: All other systems reviewed and negative Constitutional: denies: chills, fever Eyes: denies: eye pain, eye discharge, vision change ENT: denies: ear pain, throat pain Respiratory: denies: cough, shortness of breath, wheezing Cardiovascular: denies: chest pain, palpitations Gastrointestinal: abdominal pain, nausea, vomiting Genitourinary: denies: urgency, dysuria Musculoskeletal: denies: back pain, joint swelling, arthralgia Skin: denies: rash, lesions Neurological: denies: headache, weakness, paresthesias Physical Exam - Physical Exam Vital Signs: Vital Signs 02/25/18 02/25/18 08:17 15:50 Temperature 97.5 F L 98.2 F Pulse Rate 87 78 Respiratory 16 18 Rate Blood Pressure 124/77 Blood Pressure 114/72 [Left] O2 Sat by Pulse 99 100 Oximetry ED Course Vital Signs 02/25/18 02/25/18 08:17 15:50 Temperature 97.5 F L 98.2 F Pulse Rate 87 78 Respiratory 16 18 Rate Blood Pressure 124/77 Blood Pressure 114/72 [Left] O2 Sat by Pulse 99 100 Oximetry ED Medical Decision Making - Lab Data Result diagrams: 02/25/18 08:49 02/25/18 08:46 Critical care attestation.: If time is entered above; I have spent that time in minutes in the direct care of this critically ill patient, excluding procedure time. ED Disposition Clinical Impression: Abdominal pain Qualifiers: Abdominal location: generalized Qualified Code(s): R10.84 - Generalized abdominal pain Nausea & vomiting Qualifiers: Vomiting type: unspecified Vomiting Intractability: non-intractable Qualified Code(s): R11.2 - Nausea with vomiting, unspecified Disposition: DC- TO HOME OR SELFCARE Is pt being admited?: No Condition: Stable Instructions: Abdominal Pain (ED), Acute Nausea and Vomiting (ED) Additional Instructions: Please follow-up with a primary care physician in the next few days and I have given you multiple names of local primary care physicians. I have also given you a referral for a local asbestos shingle inspector, Dr. Galan, to follow up regarding your abdominal pain. Return to the emergency Department with any worsening of your symptoms or any acute distress. Prescriptions: Ondansetron [Zofran Odt] 4 mg PO Q8H PRN #10 tab.rapdis PRN Reason: Nausea Referrals: PRIMARY MD ANTONELLA [Primary Care Provider] - 3-5 Days KATIE CRAWLEY MD [Staff Physician] - 3-5 Days LENNIE GALAN MD [Staff Physician] - 3-5 Days JACKIE FERGUSON MD [Staff Physician] - 3-5 Days [facility] [Outside] - 3-5 Days Time of Disposition: 20:11
[2018-02-25 18:37] VITALS: BP 114/73
--- NOTE | 2018-02-25 19:28 | Cat Scan Report ---
FINAL REPORT PROCEDURE: CT ABDOMEN PELVIS W CON TECHNIQUE: Computerized axial tomography of the abdomen and pelvis was performed after the IV injection of iodinated nonionic contrast. HISTORY: Abd pain COMPARISON: No prior studies are available for comparison. FINDINGS: Lower Lung winters: Small amount of dependent atelectasis visualized. No effusions are identified. Upper Abdomen: The liver is unremarkable. There is slight heterogeneous density near the neck of the gallbladder. This is seen on axial image 56 series 2. I cannot exclude small gallstones. The gallbladder is otherwise unremarkable. The liver showed no focal abnormalities. The adrenal glands and the pancreas are unremarkable. There is heterogeneous enhancement of the spleen. On axial image 46 series 2 there is a wedge-like area of absent enhancement in the periphery of the spleen extending over approximately 1.9 centimeter. This could be an artifact from early stage of contrast enhancement. I cannot exclude a small peripheral infarct given the shape of the absent enhancement. The spleen is otherwise unremarkable. No inflammatory changes are seen in the adjacent soft tissues. Kidneys, Ureters and Urinary bladder: Horseshoe kidney is present, normal variant. Kidneys are otherwise unremarkable. No masses or calculi are seen. There is no hydronephrosis. Urinary bladder is only partially filled and otherwise unremarkable. Retroperitoneum: Abdominal aorta appears normal. No mass is visualized. Nonspecific subcentimeter lymph nodes are seen in the retroperitoneum. No pathologically enlarged lymph nodes are identified. Bowel: Bowel loops are unremarkable. No evidence of bowel obstruction or ascites. There is no free intraperitoneal gas. Normal-appearing appendix is seen in the right lower quadrant. Reproductive organs: Prostate gland does not appear to be significantly enlarged. Other: Degenerative changes seen in the lumbar spine and lower thoracic spine. At the L4-L5 level there is large posterior osteophytic spur, facet arthritis and ligamentum flavum laxity narrowing the spinal canal, borderline spinal stenosis appears to be present. This extends into the neural foramina bilaterally. Right side is worse than the left. I cannot exclude compression of the exiting L4 nerve roots. IMPRESSION: Subtle heterogeneous density neck of the gallbladder. I cannot exclude small gallstones. Please see above image reference. Gallbladder is otherwise unremarkable. If clinically indicated gallbladder ultrasound could be obtained for further evaluation. Venous enhancement of the spleen. This may be an artifact due to early stage of arterial enhancement. There is a wedge-like deformity present. I cannot exclude a splenic infarction. Correlation with clinical presentation recommended. Horseshoe kidney present, normal variant. Kidneys ureters and urinary bladder otherwise are unremarkable. Degenerative changes lumbar spine and lower thoracic spine as described. Spinal stenosis appears to be present at the L4-5 level. No foraminal narrowing appears to be present bilaterally at the L4-5 level. I cannot exclude compression of the exiting L4 nerve roots.
== END 2018-02-25 20:16 | disposition home or self-care (01) ==
LOC: ED 08:10
DX: R10.84 Generalized abdominal pain (principal); R11.2 Nausea with vomiting, unspecified; I10 Essential (primary) hypertension; E11.9 Type 2 diabetes mellitus without complications; K21.9 Gastro-esophageal reflux disease without esophagitis; F17.200 Nicotine dependence, unspecified, uncomplicated; Z79.84 Long term (current) use of oral hypoglycemic drugs
CPT/HCPCS: 36415; 74177; 80053; 85025; 99284; Q9967

== ENCOUNTER 2018-02-26 08:23 | Emergency (ER) | payer SELFPAY ==
[2018-02-26] MEDS ORDERED: NACL 0.9% 1000 ML 1,000 ML IV ONE (08:40)
[2018-02-26 08:45] VITALS: BP 132/76
[2018-02-26 09:10] LABS: Basophils % (Auto) 0.7 % (0.0-1.8); Eosinophils # (Auto) 0.2 K/mm3 (0.0-0.4); Hematocrit 41.4 % (35.5-45.6); Hemoglobin 13.5 gm/dl (11.8-15.2); Lymphocytes # (Auto) 2.1 K/mm3 (1.2-5.4); Mean Corpuscular HGB Conc 33 % (32-34); Mean Corpuscular Hemoglobin 28 pg (28-32); Mean Corpuscular Volume 87 fl (84-94); Monocytes # (Auto) 0.5 K/mm3 (0.0-0.8); Monocytes % (Auto) 9.3 % (0.0-7.3); Platelet Count 223 K/mm3 (140-440); Red Blood Count 4.78 M/mm3 (3.65-5.03); Red Cell Distribution Width 14.6 % (13.2-15.2)
[2018-02-26 09:21] LABS: INR 0.82 (0.87-1.13)
[2018-02-26 09:37] LABS: Alanine Aminotransferase 14 units/L (7-56); Albumin 3.6 g/dL (3.9-5); BUN/Creatinine Ratio 16; Blood Urea Nitrogen 11 mg/dL (9-20); Calcium 8.6 mg/dL (8.4-10.2); Hemolysis Index 23; Lipase 22 units/L (13-60)
--- NOTE | 2018-02-26 17:14 | Emergency Department Report ---
ED GI Bleed HPI - General Chief complaint: GI Bleed Stated complaint: BLEEDING FROM MOUTH Time Seen by Provider: 02/26/18 16:58 Source: patient Mode of arrival: Ambulatory Limitations: No Limitations - History of Present Illness Initial comments: Mr Villegas is a 53 year-old man with hx of HTN, DM, GERD who presents after one episode of bloody bowel movement this morning. Blood streaks in stool and on TP. Concern there may have been blood in emesis as well. Mild upper abdominal pain. One episode this morning. No chest pain. no shortness of breath. No fever. No other complaints. No previous episodes. MD complaint: blood on toilet paper, blood streaked stool - Related Data Previous Rx's Medication Instructions Recorded Last Taken Type Aspirin EC [Aspirin Enteric Coated 325 mg PO QDAY #30 tablet 02/24/18 Unknown Rx TAB] AtorvaSTATin [Lipitor] 40 mg PO QHS #30 tab 02/24/18 Unknown Rx Famotidine [Pepcid] 20 mg PO BID #30 tablet 02/24/18 Unknown Rx Metformin HCl 500 mg PO DAILY #30 tablet 02/24/18 Unknown Rx Metoprolol [Lopressor TAB] 12.5 mg PO BID #60 tablet 02/24/18 Unknown Rx Ondansetron [Zofran Odt] 4 mg PO Q8H PRN #10 tab.rapdis 02/25/18 Unknown Rx Allergies Allergy/AdvReac Type Severity Reaction Status Date / Time No Known Allergies Allergy Verified 02/25/18 08:17 ED Review of Systems ROS: Stated complaint: BLEEDING FROM MOUTH Other details as noted in HPI Comment: All other systems reviewed and negative ED Past Medical Hx - Past Medical History Previous Medical History?: Yes Hx Hypertension: Yes Hx Diabetes: Yes Hx GERD: Yes - Surgical History Past Surgical History?: No - Social History Smoking Status: Current Every Day Smoker Substance Use Type: None - Medications Home Medications: Home Medications Medication Instructions Recorded Confirmed Last Taken Type Aspirin EC [Aspirin Enteric Coated 325 mg PO QDAY #30 tablet 02/24/18 02/25/18 Unknown Rx TAB] AtorvaSTATin [Lipitor] 40 mg PO QHS #30 tab 02/24/18 02/25/18 Unknown Rx Famotidine [Pepcid] 20 mg PO BID #30 tablet 02/24/18 02/25/18 Unknown Rx Metformin HCl 500 mg PO DAILY #30 tablet 02/24/18 02/25/18 Unknown Rx Metoprolol [Lopressor TAB] 12.5 mg PO BID #60 tablet 02/24/18 02/25/18 Unknown Rx Ondansetron [Zofran Odt] 4 mg PO Q8H PRN #10 tab.rapdis 02/25/18 Unknown Rx ED Physical Exam - General Limitations: No Limitations General appearance: alert, in no apparent distress - Head Head exam: Present: atraumatic, normocephalic - Eye Eye exam: Present: normal appearance, EOMI - ENT ENT exam: Present: mucous membranes moist - Neck Neck exam: Present: normal inspection. Absent: tenderness, meningismus - Respiratory Respiratory exam: Present: normal lung sounds bilaterally. Absent: respiratory distress - Cardiovascular Cardiovascular Exam: Present: regular rate, normal rhythm. Absent: systolic murmur, diastolic murmur, rubs, gallop - GI/Abdominal GI/Abdominal exam: Present: soft. Absent: distended, tenderness, guarding, rebound - Rectal Rectal exam: Present: deferred, normal inspection, normal rectal tone, heme (-) stool. Absent: black stool, bloody stool, fecal impaction, hemorrhoids, mass, tenderness - Extremities Exam Extremities exam: Present: normal inspection - Back Exam Back exam: Present: normal inspection - Neurological Exam Neurological exam: Present: alert, oriented X3 - Psychiatric Psychiatric exam: Present: normal affect, normal mood - Skin Skin exam: Present: warm, dry, intact, normal color. Absent: rash ED Course Vital Signs 02/26/18 08:41 Temperature 98 F Pulse Rate 78 Respiratory 18 Rate Blood Pressure 132/76 O2 Sat by Pulse 99 Oximetry ED Medical Decision Making - Lab Data Result diagrams: 02/26/18 08:52 02/26/18 08:52 Lab Results 02/26/18 02/26/18 02/26/18 Range/Units 08:52 08:52 08:52 WBC 5.4 (4.5-11.0) K/mm3 RBC 4.78 (3.65-5.03) M/mm3 Hgb 13.5 (11.8-15.2) gm/dl Hct 41.4 (35.5-45.6) % MCV 87 (84-94) fl MCH 28 (28-32) pg MCHC 33 (32-34) % RDW 14.6 (13.2-15.2) % Plt Count 223 (140-440) K/mm3 Lymph % (Auto) 39.0 H (13.4-35.0) % [place] % (Auto) 9.3 H (0.0-7.3) % Eos % (Auto) 3.0 (0.0-4.3) % Baso % (Auto) 0.7 (0.0-1.8) % Lymph # 2.1 (1.2-5.4) K/mm3 [place] # 0.5 (0.0-0.8) K/mm3 Eos # 0.2 (0.0-0.4) K/mm3 Baso # 0.0 (0.0-0.1) K/mm3 Seg Neutrophils % 48.0 (40.0-70.0) % Seg Neutrophils # 2.6 (1.8-7.7) K/mm3 PT 11.7 L (12.2-14.9) Sec. INR 0.82 L (0.87-1.13) APTT 30.0 (24.2-36.6) Sec. Sodium 139 (137-145) mmol/L Potassium 3.9 (3.6-5.0) mmol/L Chloride 101.1 (98-107) mmol/L Carbon Dioxide 25 (22-30) mmol/L Anion Gap 17 mmol/L BUN 11 (9-20) mg/dL Creatinine 0.7 L (0.8-1.5) mg/dL Estimated GFR > 60 ml/min BUN/Creatinine Ratio 16 % Glucose 300 H (75-100) mg/dL Calcium 8.6 (8.4-10.2) mg/dL Total Bilirubin 0.30 (0.1-1.2) mg/dL AST 15 (5-40) units/L ALT 14 (7-56) units/L Alkaline Phosphatase 109 (35-129) units/L Total Protein 6.0 L (6.3-8.2) g/dL Albumin 3.6 L (3.9-5) g/dL Albumin/Globulin Ratio 1.5 % Lipase 22 (13-60) units/L Blood Type Antibody Screen 02/26/18 Range/Units 08:52 WBC (4.5-11.0) K/mm3 RBC (3.65-5.03) M/mm3 Hgb (11.8-15.2) gm/dl Hct (35.5-45.6) % MCV (84-94) fl MCH (28-32) pg MCHC (32-34) % RDW (13.2-15.2) % Plt Count (140-440) K/mm3 Lymph % (Auto) (13.4-35.0) % [place] % (Auto) (0.0-7.3) % Eos % (Auto) (0.0-4.3) % Baso % (Auto) (0.0-1.8) % Lymph # (1.2-5.4) K/mm3 [place] # (0.0-0.8) K/mm3 Eos # (0.0-0.4) K/mm3 Baso # (0.0-0.1) K/mm3 Seg Neutrophils % (40.0-70.0) % Seg Neutrophils # (1.8-7.7) K/mm3 PT (12.2-14.9) Sec. INR (0.87-1.13) APTT (24.2-36.6) Sec. Sodium (137-145) mmol/L Potassium (3.6-5.0) mmol/L Chloride (98-107) mmol/L Carbon Dioxide (22-30) mmol/L Anion Gap mmol/L BUN (9-20) mg/dL Creatinine (0.8-1.5) mg/dL Estimated GFR ml/min BUN/Creatinine Ratio % Glucose (75-100) mg/dL Calcium (8.4-10.2) mg/dL Total Bilirubin (0.1-1.2) mg/dL AST (5-40) units/L ALT (7-56) units/L Alkaline Phosphatase (35-129) units/L Total Protein (6.3-8.2) g/dL Albumin (3.9-5) g/dL Albumin/Globulin Ratio % Lipase (13-60) units/L Blood Type O POSITIVE Antibody Screen Negative - Medical Decision Making Mr Givens is a 53 year-old man who reports rectal bleeding, bloody emesis. One episode of each this morning. Exam benign. Rectal without gross blood, guaiac negative. Hgb at baseline. Will dc to home. No evidence of further bleeding. Will dc to home with care instructions, return precautions. Recommend pcp follow-up Critical care attestation.: If time is entered above; I have spent that time in minutes in the direct care of this critically ill patient, excluding procedure time. ED Disposition Clinical Impression: Blood in stool Abdominal pain Qualifiers: Abdominal location: generalized Qualified Code(s): R10.84 - Generalized abdominal pain Disposition: DC-01 TO HOME OR SELFCARE Is pt being admited?: No Does the pt Need Aspirin: No Condition: Stable Instructions: Laxative, Stool Softeners (By mouth), Rectal Bleeding (ED) Referrals: PRIMARY CARE, [Primary Care Provider] - 3-5 Days
== END 2018-02-26 18:08 | disposition home or self-care (01) ==
LOC: ED 08:23
DX: K92.1 Melena (principal); I10 Essential (primary) hypertension; E11.9 Type 2 diabetes mellitus without complications; K21.9 Gastro-esophageal reflux disease without esophagitis; F17.200 Nicotine dependence, unspecified, uncomplicated; Z79.84 Long term (current) use of oral hypoglycemic drugs
CPT/HCPCS: 36415; 80053; 83690; 85025; 85610; 85730; 86850; 86900; 86901; 99284

== ENCOUNTER 2018-03-25 21:54 | Emergency (ER) | payer SELFPAY ==
[2018-03-26 05:01] VITALS: BP 171/84
== END 2018-03-26 04:00 | disposition left against medical advice (07) ==
LOC: ED 21:54
DX: R51 Headache (principal); Z53.21 Procedure and treatment not carried out due to patient leaving prior to being seen by health care provider

== ENCOUNTER 2018-03-26 22:06 | Emergency (ER) | payer SELFPAY ==
[2018-03-26 22:29] VITALS: BP 158/80
--- NOTE | 2018-03-27 02:09 | Emergency Department Report ---
ED Headache HPI - General Chief Complaint: Headache Stated Complaint: HEADACHE Time Seen by Provider: 03/27/18 01:47 - History of Present Illness Initial Comments: Patient 53-year-old -F[place] male presents for a left temporal headache patient states headache is 4/10 with sinus pain mild postnasal drip pain is exacerbated by movement and position pain relieved by rest patient has not attempted [id number] pain meds for headache is no dizziness no blurred vision no fever chills no nausea vomiting pt is a [id number] smoker has history of headaches and sinus infections Timing/Duration: other (3 days ) Quality: moderate Head Injury Location: temporal Recent Head Trauma: occasional headaches Modifying Factors: improves with: rest Associated Symptoms: facial pain, nasal drainage, sinus infection. denies: confusion, fatigue, fever/chills, flushing, loss of consciousness, nausea/ vomiting, nasal congestion, numbness in legs/feet, rash, seizures, stiff neck, vision changes, weakness Allergies/Adverse Reactions: Allergies No Known Allergies Allergy (Verified 02/25/18 08:17) Home Medications: Ambulatory Orders Aspirin EC [Aspirin Enteric Coated TAB] 325 mg PO QDAY #30 tablet 02/24/18 AtorvaSTATin [Lipitor] 40 mg PO QHS #30 tab 02/24/18 Famotidine [Pepcid] 20 mg PO BID #30 tablet 02/24/18 Metformin HCl 500 mg PO DAILY #30 tablet 02/24/18 Metoprolol [Lopressor TAB] 12.5 mg PO BID #60 tablet 02/24/18 Ondansetron [Zofran Odt] 4 mg PO Q8H PRN #10 tab.rapdis 02/25/18 Acetaminophen [Acetaminophen TAB] 1,000 mg PO QID #60 tablet 03/27/18 Metoclopramide [Reglan TAB] 10 mg PO QID PRN #30 tablet 03/27/18 diphenhydrAMINE [Benadryl CAP] 25 mg PO QID PRN #30 capsule 03/27/18 ED Review of Systems ROS: Stated complaint: HEADACHE Other details as noted in HPI Constitutional: denies: chills, fever Eyes: denies: eye pain, eye discharge, vision change ENT: congestion. denies: ear pain, throat pain Respiratory: denies: cough, shortness of breath, wheezing Cardiovascular: denies: chest pain, palpitations Endocrine: no symptoms reported Gastrointestinal: denies: abdominal pain, nausea, diarrhea Genitourinary: as per HPI Musculoskeletal: denies: back pain, joint swelling, arthralgia Skin: denies: rash, lesions Neurological: headache. denies: weakness, paresthesias, abnormal gait Psychiatric: denies: anxiety, depression Hematological/Lymphatic: denies: easy bleeding, easy bruising ED Past Medical Hx - Past Medical History Previous Medical History?: Yes Hx Hypertension: Yes Hx Congestive Heart Failure: No Hx Diabetes: Yes Hx GERD: Yes Hx Asthma: No Hx COPD: No Additional medical history: As per HPI, mild stroke - Surgical History Past Surgical History?: No - Social History Smoking Status: Current Every Day Smoker Substance Use Type: None - Medications Home Medications: Home Medications Medication Instructions Recorded Confirmed Last Taken Type Aspirin EC [Aspirin Enteric Coated 325 mg PO QDAY #30 tablet 02/24/18 03/23/18 Unknown Rx TAB] AtorvaSTATin [Lipitor] 40 mg PO QHS #30 tab 02/24/18 02/25/18 Unknown Rx Famotidine [Pepcid] 20 mg PO BID #30 tablet 02/24/18 02/25/18 Unknown Rx Metformin HCl 500 mg PO DAILY #30 tablet 02/24/18 03/23/18 Unknown Rx Metoprolol [Lopressor TAB] 12.5 mg PO BID #60 tablet 02/24/18 03/23/18 Unknown Rx Ondansetron [Zofran Odt] 4 mg PO Q8H PRN #10 tab.rapdis 02/25/18 Unknown Rx Acetaminophen [Acetaminophen TAB] 1,000 mg PO QID #60 tablet 03/27/18 Unknown Rx Metoclopramide [Reglan TAB] 10 mg PO QID PRN #30 tablet 03/27/18 Unknown Rx diphenhydrAMINE [Benadryl CAP] 25 mg PO QID PRN #30 capsule 03/27/18 Unknown Rx ED Physical Exam - General Limitations: No Limitations General appearance: alert, in no apparent distress - Head Head exam: Present: atraumatic, normocephalic - Eye Eye exam: Present: normal appearance, PERRL, EOMI Pupils: Present: normal accommodation - ENT ENT exam: Present: mucous membranes moist - Expanded ENT Exam Expanded Ear exam: Present: normal external inspection, other (bilat frontal sinus pain with palpation, bilat turbinat erythema edema clear yellow post nasal drip ) TM/Canal exam: Canal Tenderness: Left TM Mouth exam: Absent: trismus Throat exam: Positive: normal inspection. Negative: tonsillomegaly - Neck Neck exam: Present: normal inspection, full ROM. Absent: tenderness, lymphadenopathy, thyromegaly - Respiratory Respiratory exam: Present: normal lung sounds bilaterally. Absent: respiratory distress, wheezes, stridor, chest wall tenderness - Cardiovascular Cardiovascular Exam: Present: regular rate, normal rhythm, normal heart sounds. Absent: systolic murmur, diastolic murmur, rubs, gallop - GI/Abdominal GI/Abdominal exam: Present: soft, normal bowel sounds. Absent: tenderness, rebound, mass, hernia - Rectal Rectal exam: Present: deferred - Extremities Exam Extremities exam: Present: normal inspection - Back Exam Back exam: Present: normal inspection, full ROM. Absent: tenderness, CVA tenderness (R), CVA tenderness (L), muscle spasm, paraspinal tenderness, vertebral tenderness, rash noted - Neurological Exam Neurological exam: Present: alert, oriented X3, CN II-XII intact, normal gait, reflexes normal. Absent: motor sensory deficit - Psychiatric Psychiatric exam: Present: normal affect, normal mood - Skin Skin exam: Present: warm, dry, intact, normal color. Absent: rash ED Course Vital Signs 03/26/18 22:25 Temperature 98.3 F Pulse Rate 86 Respiratory 20 Rate Blood Pressure 158/80 O2 Sat by Pulse 98 Oximetry ED Medical Decision Making - Medical Decision Making This is a sinus headache post as a drip is clear yellow there is no fever no chills no nausea vomiting plan treatment for headache Benadryl Reglan Tylenol patient will follow with PCP in 2-3 days she has had several headaches in the past" same duration same intensity except headache no neuro deficits patient verbalized understanding and agreeable with discharge plan will be DC'd to home in stable condition at this time Critical care attestation.: If time is entered above; I have spent that time in minutes in the direct care of this critically ill patient, excluding procedure time. ED Disposition Clinical Impression: Sinus headache Sinusitis Qualifiers: Sinusitis location: frontal Chronicity: acute Recurrence: recurrent Qualified Code(s): J01.11 - Acute recurrent frontal sinusitis Disposition: DC- TO HOME OR SELFCARE Is pt being admited?: No Does the pt Need Aspirin: No Condition: Good Instructions: Acute Headache (ED), Sinusitis (ED) Prescriptions: Acetaminophen [Acetaminophen TAB] 1,000 mg PO QID #60 tablet diphenhydrAMINE [Benadryl CAP] 25 mg PO QID PRN #30 capsule PRN Reason: Headache Metoclopramide [Reglan TAB] 10 mg PO QID PRN #30 tablet PRN Reason: Headache Referrals: [facility] [Outside] - 3-5 Days Forms: Work/School Release Form(ED) Time of Disposition: 02:19
[2018-03-27] MEDS ORDERED: REGLAN PO ONE (02:14)
[2018-03-27] MEDS ORDERED: BENADRYL PO ONE (02:14)
[2018-03-27] MEDS ORDERED: DECADRON IM ONE (02:14)
[2018-03-27] MEDS ORDERED: TYLENOL PO ONE (02:16)
== END 2018-03-27 03:00 | disposition home or self-care (01) ==
LOC: ED 22:06
DX: J01.11 Acute recurrent frontal sinusitis (principal); I10 Essential (primary) hypertension; E11.9 Type 2 diabetes mellitus without complications; K21.9 Gastro-esophageal reflux disease without esophagitis; F17.200 Nicotine dependence, unspecified, uncomplicated; Z79.82 Long term (current) use of aspirin
CPT/HCPCS: 96372; 99282; J1100